=== PATIENT | female | born 1955 | race Caucasian/White ===

== ENCOUNTER → 2019-08-30 | Outpatient (CLI) | payer MEDICARE, BC ==
[2019-08-30 10:05] LABS: Calcium, Urine 11.8 mg/dL (< 17.5); Calcium, Urine Calculation 259.6 mg/24hrs (42.0-353.0)
== END | disposition home or self-care (01) ==
LOC: LAB 08:35 → LAB SHORT 08:35 → LAB FUT 08-23 14:25
PROVIDERS: Physician Assistant
DX: E83.52 Hypercalcemia (principal)
CPT/HCPCS: 81050; 82340